=== PATIENT | female | born 2000 | race African-American/Black ===

== ENCOUNTER 2023-05-31 12:04 | Emergency (ER) | payer OTHER ==
[~2023-05-31] VITALS: Ht 152.4 cm; Wt 69.5 kg
[2023-05-31 12:05] VITALS: BP 116/61; TEMP 96.6; O2SAT 97
[2023-05-31] MEDS ORDERED: PROZ20CA11 PO (12:26)
[2023-05-31] MEDS ORDERED: WELLTAB40 PO (12:26)
[2023-05-31] MEDS ORDERED: HYDR50TA70 PO (12:26)
[2023-05-31] MEDS ORDERED: BUSP30TA PO (12:26)
[2023-05-31] MEDS ORDERED: ONDA4TAB6 PO (15:49)
[2023-05-31] MEDS ORDERED: RIZA10TA64 PO (15:49)
== END 2023-05-31 15:56 | disposition home or self-care (01) ==
LOC: M ED 12:04
DX: G43.909 Migraine, unspecified, not intractable, without status migrainosus (principal); F41.9 Anxiety disorder, unspecified; F32.A Depression, unspecified